=== PATIENT | male | born 1995 | race African-American/Black ===

== ENCOUNTER 2017-02-08 13:00 | Emergency (ER) | payer SELFPAY | END 2017-02-08 13:29 | disposition home or self-care (01) | LOC: SCSER 13:00 | DX: J01.90 Acute sinusitis, unspecified (principal); H81.13 Benign paroxysmal vertigo, bilateral; K58.9 Irritable bowel syndrome, unspecified; F90.9 Attention-deficit hyperactivity disorder, unspecified type | CPT/HCPCS: 99283 ==

== ENCOUNTER 2017-03-22 18:35 | Emergency (ER) | payer SELFPAY | END 2017-03-22 18:56 | disposition home or self-care (01) | LOC: SCSER 18:35 | DX: S06.0X9A Concussion with loss of consciousness of unspecified duration, initial encounter (principal); S60.811A Abrasion of right wrist, initial encounter; F90.9 Attention-deficit hyperactivity disorder, unspecified type; V89.2XXA Person injured in unspecified motor-vehicle accident, traffic, initial encounter | CPT/HCPCS: 99283 ==

== ENCOUNTER 2017-10-27 13:54 | Emergency (ER) | payer OTHER, SELFPAY ==
--- NOTE | 2017-10-27 15:39 | RAD ---
LEFT ANKLE RADIOGRAPHS THREE VIEWS 10/27/17 PROVIDED CLINICAL HISTORY: Left ankle pain status post injury. FINDINGS: Comparison 11/14/14. No evidence for fracture or other acute osseous abnormality. If there is persistent clinical concern, conservative management and followup imaging advised. IMPRESSION: As above. POS: [facility]
== END 2017-10-27 15:55 | disposition home or self-care (01) ==
LOC: SCSER 13:54
DX: S86.312A Strain of muscle(s) and tendon(s) of peroneal muscle group at lower leg level, left leg, initial encounter (principal); F90.9 Attention-deficit hyperactivity disorder, unspecified type; F31.9 Bipolar disorder, unspecified; K58.9 Irritable bowel syndrome, unspecified; X50.1XXA Overexertion from prolonged static or awkward postures, initial encounter

== ENCOUNTER 2018-01-18 10:57 | Emergency (ER) | payer SELFPAY ==
[2018-01-18] MEDS ORDERED: Ketorolac Tromethamine 60 MG/2 ML VIAL ONE (11:15)
== END 2018-01-18 11:36 | disposition home or self-care (01) ==
LOC: SCSER 10:57
DX: K01.1 Impacted teeth (principal); F90.9 Attention-deficit hyperactivity disorder, unspecified type; K58.9 Irritable bowel syndrome, unspecified; F31.9 Bipolar disorder, unspecified
CPT/HCPCS: 96372; J1885

== ENCOUNTER 2018-07-09 10:17 | Emergency (ER) | payer SELFPAY ==
[2018-07-09] MEDS ORDERED: Ketorolac Tromethamine 60 MG/2 ML VIAL ONE (10:39)
[2018-07-09] MEDS ORDERED: Dexamethasone 10 MG/ML VIAL ONE (10:39)
== END 2018-07-09 11:00 | disposition home or self-care (01) ==
LOC: SCSER 10:17
DX: K01.1 Impacted teeth (principal); J02.9 Acute pharyngitis, unspecified; F90.9 Attention-deficit hyperactivity disorder, unspecified type; K58.9 Irritable bowel syndrome, unspecified; F31.9 Bipolar disorder, unspecified
CPT/HCPCS: 96372; J1100; J1885

== ENCOUNTER 2021-12-05 23:14 | Emergency (ER) | payer SELFPAY ==
[2021-12-05] MEDS ORDERED: Proparacaine 0.5% Opth 15 ML BOT ONE (23:23)
[2021-12-05] MEDS ORDERED: Fluorescein Opthalmic Strip ONE (23:23)
== END 2021-12-05 23:41 | disposition home or self-care (01) ==
LOC: ERS 23:14
DX: S05.01XA Injury of conjunctiva and corneal abrasion without foreign body, right eye, initial encounter (principal); X58.XXXA Exposure to other specified factors, initial encounter
CPT/HCPCS: 99283